=== PATIENT | female | born 1940 | race Caucasian/White ===

== ENCOUNTER → 2016-12-11 | Outpatient (CLI) | payer MEDICARE, BC | END | disposition home or self-care (01) | LOC: CDC 09:46 | DX: M25.532 Pain in left wrist (principal); S63.502A Unspecified sprain of left wrist, initial encounter; G56.02 Carpal tunnel syndrome, left upper limb | CPT/HCPCS: 93000 ==

== ENCOUNTER → 2017-09-03 | Outpatient (CLI) | payer MEDICARE, OTHER | END | disposition home or self-care (01) | LOC: CDC 14:15 | DX: Z01.810 Encounter for preprocedural cardiovascular examination (principal); M19.041 Primary osteoarthritis, right hand; M79.641 Pain in right hand; M67.431 Ganglion, right wrist | CPT/HCPCS: 93000 ==